=== PATIENT | male | born 1960 | race African-American/Black ===

== ENCOUNTER 2018-04-21 16:08 | Emergency (ER) | payer OTHER ==
[~2018-04-21] VITALS: Ht 175.3 cm; Wt 63.5 kg
[2018-04-21] MEDS ORDERED: NIFEDIPINE 10 MG CAP PO NR (16:45)
[2018-04-21] MEDS ORDERED: METOPROLOL TART50 MG PO (20:23)
[2018-04-21] MEDS ORDERED: MOTRIN200 MG PO (20:23)
== END 2018-04-21 21:42 | disposition home or self-care (01) ==
LOC: ER 16:08
DX: M25.531 Pain in right wrist (principal); I10 Essential (primary) hypertension
CPT/HCPCS: 99283